=== PATIENT | male | born 1990 | race Caucasian/White ===

== ENCOUNTER 2020-01-28 15:42 | Inpatient (IN) | payer OTHER ==
[~2020-01-28] VITALS: Ht 167.6 cm; Wt 70.5 kg
[2020-01-28] MEDS ORDERED: ONDANSETRON HCL 4 MG/2 ML VIAL IVP ONE (17:00)
[2020-01-28] MEDS ORDERED: SODIUM CHLORIDE 0.9% 1,000 ML IV ONE (17:00)
[2020-01-28 17:24] LABS: ALANINE AMINOTRANSFERASE 69 U/L (12-78); ALKALINE PHOSPHATASE 103 U/L (46-116); ASPARTATE AMINOTRANSFERASE 38 U/L (15-37); BILIRUBIN,TOTAL 0.6 mg/dL (0.1-1.0); CALCIUM, TOTAL 9.4 mg/dL (8.8-10.5); CARBON DIOXIDE 21 mmol/L (22-29); GLOMERULAR FILTR. RATE CALC > 60 mL/min (>60); GLUCOSE,RANDOM 100 mg/dL (70-110); TOTAL PROTEIN, SERUM 8.3 g/dL (6.4-8.2); UREA NITROGEN, BLOOD 10 mg/dL (7-18)
[2020-01-28 17:34] LABS: ANION GAP 11 mmol/L (8-16); CHLORIDE 100 mmol/L (98-107); SODIUM SERUM 132 mmol/L (136-145)
[2020-01-28 18:30] VITALS: BP_SYST 103; BP_SYST 107; BP_DIAS 46
[2020-01-28] MEDS ORDERED: SODIUM CHLORIDE 0.45% 1,000 ML IV SCH (18:41)
[2020-01-28] MEDS ORDERED: ZOLPIDEM TARTRATE 5 MG TABLET PO PRN (18:45)
[2020-01-28] MEDS ORDERED: LOPERAMIDE HCL 2 MG/15 ML SUSPENSION UDCUP PO PRN (18:45)
[2020-01-28] MEDS ORDERED: BACLOFEN 10 MG TABLET PO PRN (18:45)
[2020-01-28] MEDS ORDERED: HydrOXYzine PAMOATE 50 MG CAPSULE PO PRN ×2 (18:45)
[2020-01-28] MEDS ORDERED: BISACODYL 10 MG RECTAL RECTAL SUPPOSITORY PR PRN (18:45)
[2020-01-28] MEDS ORDERED: LOPERAMIDE HCL 2 MG CAPSULE PO PRN (18:45)
[2020-01-28] MEDS ORDERED: IBUPROFEN 600 MG TABLET PO PRN (18:45)
[2020-01-28] MEDS ORDERED: ACETAMINOPHEN 325 MG TABLET PO PRN (18:45)
[2020-01-28] MEDS ORDERED: MAGNESIUM HYDROXIDE SUSPENSION 30 ML UDCUP PO PRN (18:45)
[2020-01-28] MEDS ORDERED: CloNIDine HCL 0.1 MG TABLET PO PRN ×2 (18:45)
[2020-01-28] MEDS ORDERED: ALBUTEROL SULFATE 2.5 MG/0.5 ML NEB SOLUTION NEB PRN (18:45)
[2020-01-28] MEDS ORDERED: MAG HYDROX/AL HYDROX/SIMETH ES 30 ML SUSPENSION UDCUP PO PRN ×2 (18:45)
[2020-01-28] MEDS ORDERED: IPRATROPIUM BROMIDE 0.5 MG/2.5 ML NEB SOLUTION NEB PRN (18:45)
[2020-01-28] MEDS: IBUPROFEN 600 MG TABLET PO PRN (19:34)
[2020-01-28 20:24] LABS: BASOPHILS % (AUTO) 0.2 % (0.0-2.0); EOSINOPHILS % (AUTO) 0 % (1.0-6.0); HEMATOCRIT 42.1 % (41-53); HEMOGLOBIN 14.4 g/dL (13.5-17.5); LYMPHOCYTES # (AUTO) 0.9 K/uL (1.0-4.8); MEAN CORPUSCULAR HEMOGLOBIN 28.8 pg (26.0-34.0); MEAN CORPUSCULAR HGB CONC 34.1 G/dL (31.0-37.0); MEAN CORPUSCULAR VOLUME 85 fL (80-100); MONOCYTES # (AUTO) 0.3 K/uL (0.1-1.0); MONOCYTES % (AUTO) 4.5 % (2.0-9.0); NEUTROPHILS % (AUTO) 82.3 % (40.0-70.0); PLATELET COUNT (AUTO) 315 K/uL (150-450); RED BLOOD CELL COUNT(AUTO) 4.98 MIL/uL (4.50-5.90); RED CELL DISTRIBUTION WIDTH 13.4 % (11.5-14.5)
[2020-01-28 20:51] LABS: AMPHET/METH SCREEN,URINE POSITIVE (NEGATIVE); BARBITURATE SCREEN, URINE NEGATIVE (NEGATIVE); BENZODIAZEPINES SCREEN,URINE NEGATIVE (NEGATIVE); CANNABINOID SCREEN,URINE NEGATIVE (NEGATIVE); COCAINE SCREEN,URINE NEGATIVE (NEGATIVE); METHADONE SCREEN, URINE NEGATIVE (NEGATIVE); OPIATE SCREEN,URINE POSITIVE (NEGATIVE)
[2020-01-28 20:56] LABS: PHENCYCLIDINE SCREEN,URINE NEGATIVE (NEGATIVE)
[2020-01-28] MEDS: CloNIDine HCL 0.1 MG TABLET PO SCH (21:32)
[2020-01-28] MEDS: TraZODone HCL 50 MG TABLET PO PRN (21:32)
[2020-01-28] MEDS: LORazepam 1 MG TABLET PO PRN (21:32)
[2020-01-28] MEDS: ONDANSETRON HCL 4 MG/2 ML VIAL IVP PRN (22:46)
[2020-01-28 23:03] VITALS: BP 149/72
[2020-01-28 23:05] VITALS: BP 149/72
[2020-01-29] MEDS: PROMETHAZINE HCL 25 MG TABLET PO PRN ×2 (03:54→12:35)
[2020-01-29 04:45] VITALS: BP 102/53
[2020-01-29] MEDS: CloNIDine HCL 0.1 MG TABLET PO SCH ×4 (05:54→21:43)
[2020-01-29 07:09] LABS: BASOPHILS % (AUTO) 0.2 % (0.0-2.0); EOSINOPHILS % (AUTO) 0 % (1.0-6.0); HEMATOCRIT 41.5 % (41-53); HEMOGLOBIN 14.4 g/dL (13.5-17.5); LYMPHOCYTES # (AUTO) 0.9 K/uL (1.0-4.8); LYMPHOCYTES % (AUTO) 13.5 % (22.0-44.0); MEAN CORPUSCULAR HGB CONC 34.7 G/dL (31.0-37.0); MEAN CORPUSCULAR VOLUME 84 fL (80-100); MONOCYTES # (AUTO) 0.3 K/uL (0.1-1.0); MONOCYTES % (AUTO) 4.5 % (2.0-9.0); NEUTROPHILS # (AUTO) 5.5 K/uL (1.8-7.7); NEUTROPHILS % (AUTO) 81.8 % (40.0-70.0); PLATELET COUNT (AUTO) 337 K/uL (150-450); RED BLOOD CELL COUNT(AUTO) 4.97 MIL/uL (4.50-5.90); RED CELL DISTRIBUTION WIDTH 13.5 % (11.5-14.5)
[2020-01-29] MEDS: ONDANSETRON HCL 4 MG/2 ML VIAL IVP PRN ×3 (08:25→23:11)
[2020-01-29] MEDS: HEPARIN SODIUM,PORCINE 5,000 UNITS/ML VIAL SQ SCH ×4 (08:26→23:11)
[2020-01-29] MEDS: DICYCLOMINE HCL 10 MG CAPSULE PO PRN ×2 (08:37→23:12)
[2020-01-29 08:46] VITALS: BP 110/55
[2020-01-29 12:37] VITALS: BP 125/64
[2020-01-29 17:00] VITALS: BP 107/54
[2020-01-29 18:58] VITALS: BP 107/54
[2020-01-29 20:21] VITALS: BP 118/59
[2020-01-29] MEDS: TraZODone HCL 50 MG TABLET PO PRN (21:58)
[2020-01-29] MEDS ORDERED: SODIUM CHLORIDE 0.9% 500 ML IV ONE (23:09)
[2020-01-30 00:17] VITALS: BP 121/64
[2020-01-30 04:42] VITALS: BP 107/63
[2020-01-30] MEDS: CloNIDine HCL 0.1 MG TABLET PO SCH ×4 (06:00→22:00)
[2020-01-30 08:06] VITALS: BP 123/72
[2020-01-30] MEDS: DICYCLOMINE HCL 10 MG CAPSULE PO PRN ×2 (08:17→15:08)
[2020-01-30] MEDS: PROMETHAZINE HCL 25 MG TABLET PO PRN (08:18)
[2020-01-30] MEDS: HEPARIN SODIUM,PORCINE 5,000 UNITS/ML VIAL SQ SCH ×3 (08:18→23:36)
[2020-01-30] MEDS: ONDANSETRON HCL 4 MG/2 ML VIAL IVP PRN ×2 (15:08→21:56)
[2020-01-30] MEDS: SODIUM CHLORIDE 0.45% 1,000 ML IV SCH (16:29)
[2020-01-30 17:09] VITALS: BP 97/49
[2020-01-30] MEDS: ACETAMINOPHEN 325 MG TABLET PO PRN ×2 (17:13→21:56)
[2020-01-30 19:48] VITALS: BP 116/72
[2020-01-30] MEDS: TraZODone HCL 50 MG TABLET PO PRN (21:56)
[2020-01-30 23:36] VITALS: BP 120/66
[2020-01-31 05:04] VITALS: BP 118/68
[2020-01-31] MEDS: CloNIDine HCL 0.1 MG TABLET PO SCH ×4 (06:00→22:00)
[2020-01-31] MEDS: SODIUM CHLORIDE 0.45% 1,000 ML IV SCH ×2 (06:37→21:33)
[2020-01-31 07:14] LABS: ANION GAP 10 mmol/L (8-16); CALCIUM, TOTAL 9.3 mg/dL (8.8-10.5); CARBON DIOXIDE 32 mmol/L (22-29); CHLORIDE 97 mmol/L (98-107); CREATININE 0.99 mg/dL (0.60-1.30); GLOMERULAR FILTR. RATE CALC > 60 mL/min (>60); GLUCOSE,RANDOM 118 mg/dL (70-110); SODIUM SERUM 139 mmol/L (136-145); UREA NITROGEN, BLOOD 17 mg/dL (7-18)
[2020-01-31 07:34] LABS: POTASSIUM 2.6 mmol/L (3.5-5.1)
[2020-01-31 07:44] LABS: PHOSPHORUS 5.2 mg/dL (2.5-4.9)
[2020-01-31 08:14] VITALS: BP 100/66
[2020-01-31] MEDS: ONDANSETRON HCL 4 MG/2 ML VIAL IVP PRN ×2 (08:25→18:25)
[2020-01-31] MEDS: HEPARIN SODIUM,PORCINE 5,000 UNITS/ML VIAL SQ SCH ×3 (08:28→23:39)
[2020-01-31] MEDS: POTASSIUM CHL 10 MEQ/WATER 50 ML IV PRN ×4 (11:01→16:38)
[2020-01-31 12:12] VITALS: BP 68/119
[2020-01-31] MEDS: POTASSIUM CHLORIDE 20 MEQ ER TABLET PO PRN (15:02)
[2020-01-31 17:02] VITALS: BP 114/57
[2020-01-31 21:45] VITALS: BP 116/76
[2020-01-31] MEDS: TraZODone HCL 50 MG TABLET PO PRN (21:50)
[2020-02-01] MEDS: ONDANSETRON HCL 4 MG/2 ML VIAL IVP PRN ×2 (04:35→12:24)
[2020-02-01 05:20] VITALS: BP 90/5
[2020-02-01] MEDS: CloNIDine HCL 0.1 MG TABLET PO SCH ×4 (06:00→21:42)
[2020-02-01] MEDS: HEPARIN SODIUM,PORCINE 5,000 UNITS/ML VIAL SQ SCH ×3 (08:19→23:56)
[2020-02-01 08:24] LABS: ANION GAP 6 mmol/L (8-16); CALCIUM, TOTAL 8.8 mg/dL (8.8-10.5); CARBON DIOXIDE 30 mmol/L (22-29); CHLORIDE 102 mmol/L (98-107); CREATININE 1.09 mg/dL (0.60-1.30); GLOMERULAR FILTR. RATE CALC > 60 mL/min (>60); GLUCOSE,RANDOM 104 mg/dL (70-110); POTASSIUM 4.1 mmol/L (3.5-5.1); SODIUM SERUM 138 mmol/L (136-145); UREA NITROGEN, BLOOD 10 mg/dL (7-18)
[2020-02-01 08:31] VITALS: BP 113/71
[2020-02-01] MEDS: IBUPROFEN 600 MG TABLET PO PRN (12:26)
[2020-02-01 15:51] VITALS: BP 110/72
[2020-02-01] MEDS: ACETAMINOPHEN 325 MG TABLET PO PRN (16:44)
[2020-02-01] MEDS: DICYCLOMINE HCL 10 MG CAPSULE PO PRN (16:44)
[2020-02-01] MEDS: SODIUM CHLORIDE 0.45% 1,000 ML IV SCH (21:03)
[2020-02-01 21:43] VITALS: BP 90/53
[2020-02-01] MEDS: LORazepam 1 MG TABLET PO PRN (22:00)
[2020-02-01] MEDS ORDERED: MORPHINE SULFATE 2 MG/ML SYRINGE IVP ONE ×2 (22:53→23:00)
[2020-02-01 23:11] LABS: BASOPHILS % (AUTO) 1.5 % (0.0-2.0); EOSINOPHILS % (AUTO) 0.3 % (1.0-6.0); HEMATOCRIT 42.9 % (41-53); HEMOGLOBIN 14.3 g/dL (13.5-17.5); LYMPHOCYTES # (AUTO) 1.8 K/uL (1.0-4.8); LYMPHOCYTES % (AUTO) 24.8 % (22.0-44.0); MEAN CORPUSCULAR HEMOGLOBIN 28.7 pg (26.0-34.0); MEAN CORPUSCULAR HGB CONC 33.4 G/dL (31.0-37.0); MEAN CORPUSCULAR VOLUME 86 fL (80-100); MONOCYTES # (AUTO) 0.6 K/uL (0.1-1.0); MONOCYTES % (AUTO) 8.6 % (2.0-9.0); NEUTROPHILS # (AUTO) 4.8 K/uL (1.8-7.7); NEUTROPHILS % (AUTO) 64.8 % (40.0-70.0); PLATELET COUNT (AUTO) 316 K/uL (150-450); RED BLOOD CELL COUNT(AUTO) 5.01 MIL/uL (4.50-5.90); RED CELL DISTRIBUTION WIDTH 13.3 % (11.5-14.5)
[2020-02-01 23:25] LABS: ANION GAP 2 mmol/L (8-16); CALCIUM, TOTAL 8.8 mg/dL (8.8-10.5); CARBON DIOXIDE 32 mmol/L (22-29); CHLORIDE 103 mmol/L (98-107); CREATININE 0.99 mg/dL (0.60-1.30); GLOMERULAR FILTR. RATE CALC > 60 mL/min (>60); GLUCOSE,RANDOM 99 mg/dL (70-110); POTASSIUM 3.8 mmol/L (3.5-5.1); SODIUM SERUM 137 mmol/L (136-145); UREA NITROGEN, BLOOD 14 mg/dL (7-18)
[2020-02-01 23:31] LABS: ALANINE AMINOTRANSFERASE 41 U/L (12-78); ALBUMIN 3.6 g/dL (3.4-5.0); ALKALINE PHOSPHATASE 93 U/L (46-116); AMYLASE 56 U/L (25-115); ASPARTATE AMINOTRANSFERASE 17 U/L (15-37); BILIRUBIN,TOTAL 0.6 mg/dL (0.1-1.0); CREATINE KINASE, TOTAL ONLY 38 U/L (39-308); LIPASE 147 U/L (73-393); TOTAL PROTEIN, SERUM 7.2 g/dL (6.4-8.2)
[2020-02-01] MEDS: DEXTROSE 5%-0.45% SODIUM CHL 1,000 ML IV SCH (23:49)
[2020-02-02] MEDS ORDERED: MORPHINE SULFATE 2 MG/ML SYRINGE IVP ONE (00:15)
[2020-02-02 05:15] VITALS: BP 111/66
[2020-02-02] MEDS: LORazepam 1 MG TABLET PO PRN (05:29)
[2020-02-02 07:27] LABS: BASOPHILS % (AUTO) 0.3 % (0.0-2.0); EOSINOPHILS % (AUTO) 0.2 % (1.0-6.0); HEMATOCRIT 43.2 % (41-53); HEMOGLOBIN 14.9 g/dL (13.5-17.5); LYMPHOCYTES # (AUTO) 1.8 K/uL (1.0-4.8); LYMPHOCYTES % (AUTO) 24.1 % (22.0-44.0); MEAN CORPUSCULAR HEMOGLOBIN 29.1 pg (26.0-34.0); MEAN CORPUSCULAR HGB CONC 34.6 G/dL (31.0-37.0); MEAN CORPUSCULAR VOLUME 84 fL (80-100); MONOCYTES # (AUTO) 0.6 K/uL (0.1-1.0); MONOCYTES % (AUTO) 7.6 % (2.0-9.0); NEUTROPHILS # (AUTO) 5.1 K/uL (1.8-7.7); NEUTROPHILS % (AUTO) 67.8 % (40.0-70.0); PLATELET COUNT (AUTO) 358 K/uL (150-450); RED BLOOD CELL COUNT(AUTO) 5.13 MIL/uL (4.50-5.90); RED CELL DISTRIBUTION WIDTH 13.2 % (11.5-14.5)
[2020-02-02 08:10] LABS: ALBUMIN 3.7 g/dL (3.4-5.0); ANION GAP 7 mmol/L (8-16); CALCIUM, TOTAL 8.8 mg/dL (8.8-10.5); CARBON DIOXIDE 32 mmol/L (22-29); CHLORIDE 102 mmol/L (98-107); GLOMERULAR FILTR. RATE CALC > 60 mL/min (>60); GLUCOSE,RANDOM 102 mg/dL (70-110); POTASSIUM 3.2 mmol/L (3.5-5.1); SODIUM SERUM 141 mmol/L (136-145); UREA NITROGEN, BLOOD 12 mg/dL (7-18)
[2020-02-02 08:30] LABS: ALANINE AMINOTRANSFERASE 44 U/L (12-78); ALKALINE PHOSPHATASE 88 U/L (46-116); ASPARTATE AMINOTRANSFERASE 18 U/L (15-37); BILIRUBIN,TOTAL 0.7 mg/dL (0.1-1.0)
[2020-02-02 08:31] LABS: TOTAL PROTEIN, SERUM 7.5 g/dL (6.4-8.2)
[2020-02-02 08:52] VITALS: BP 116/53
[2020-02-02] MEDS: HEPARIN SODIUM,PORCINE 5,000 UNITS/ML VIAL SQ SCH ×3 (08:53→23:13)
[2020-02-02 12:19] VITALS: BP 102/58
[2020-02-02 14:32] VITALS: BP 126/66
[2020-02-02 15:44] VITALS: BP 95/58
[2020-02-02] MEDS: POTASSIUM CHLORIDE 20 MEQ ER TABLET PO PRN (17:44)
[2020-02-02] MEDS: DEXTROSE 5%-0.45% SODIUM CHL 1,000 ML IV SCH (20:13)
[2020-02-02 20:30] VITALS: BP 107/69
[2020-02-02] MEDS: IBUPROFEN 600 MG TABLET PO PRN (21:14)
[2020-02-02] MEDS: TraZODone HCL 50 MG TABLET PO PRN (21:14)
[2020-02-02] MEDS: ONDANSETRON HCL 4 MG/2 ML VIAL IVP PRN (21:18)
[2020-02-03 00:10] VITALS: BP 114/60
[2020-02-03 05:30] VITALS: BP 106/65
[2020-02-03 06:42] LABS: BASOPHILS % (AUTO) 0.5 % (0.0-2.0); EOSINOPHILS % (AUTO) 0.4 % (1.0-6.0); HEMATOCRIT 41.7 % (41-53); HEMOGLOBIN 14.8 g/dL (13.5-17.5); LYMPHOCYTES # (AUTO) 1.5 K/uL (1.0-4.8); LYMPHOCYTES % (AUTO) 23.9 % (22.0-44.0); MEAN CORPUSCULAR HEMOGLOBIN 29.7 pg (26.0-34.0); MEAN CORPUSCULAR HGB CONC 35.4 G/dL (31.0-37.0); MEAN CORPUSCULAR VOLUME 84 fL (80-100); MONOCYTES # (AUTO) 0.5 K/uL (0.1-1.0); MONOCYTES % (AUTO) 8.4 % (2.0-9.0); NEUTROPHILS # (AUTO) 4.3 K/uL (1.8-7.7); NEUTROPHILS % (AUTO) 66.8 % (40.0-70.0); PLATELET COUNT (AUTO) 358 K/uL (150-450); RED BLOOD CELL COUNT(AUTO) 4.97 MIL/uL (4.50-5.90); RED CELL DISTRIBUTION WIDTH 13.4 % (11.5-14.5)
[2020-02-03 06:57] LABS: ALANINE AMINOTRANSFERASE 51 U/L (12-78); ALBUMIN 3.7 g/dL (3.4-5.0); ALKALINE PHOSPHATASE 85 U/L (46-116); ANION GAP 7 mmol/L (8-16); ASPARTATE AMINOTRANSFERASE 27 U/L (15-37); BILIRUBIN,TOTAL 0.6 mg/dL (0.1-1.0); CALCIUM, TOTAL 9.1 mg/dL (8.8-10.5); CARBON DIOXIDE 28 mmol/L (22-29); CHLORIDE 103 mmol/L (98-107); CREATININE 0.85 mg/dL (0.60-1.30); GLOMERULAR FILTR. RATE CALC > 60 mL/min (>60); GLUCOSE,RANDOM 111 mg/dL (70-110); POTASSIUM 3.6 mmol/L (3.5-5.1); SODIUM SERUM 138 mmol/L (136-145); TOTAL PROTEIN, SERUM 7.6 g/dL (6.4-8.2); UREA NITROGEN, BLOOD 11 mg/dL (7-18)
[2020-02-03 08:24] VITALS: BP 109/67
[2020-02-03] MEDS: HEPARIN SODIUM,PORCINE 5,000 UNITS/ML VIAL SQ SCH (08:44)
[2020-02-03] MEDS: DEXTROSE 5%-0.45% SODIUM CHL 1,000 ML IV SCH (08:44)
[2020-02-03 14:00] VITALS: BP 112/66
[2020-02-03] MEDS ORDERED: ACET-3207 PO (14:58)
== END 2020-02-03 16:39 | DRG 897 ==
LOC: EMS 15:42 → 6S 17:07
PROVIDERS: ADMIT Hospitalist; ATTEND Hospitalist
DX: F11.23 Opioid dependence with withdrawal (principal); F32.2 Major depressive disorder, single episode, severe without psychotic features; K56.609 Unspecified intestinal obstruction, unspecified as to partial versus complete obstruction; F10.239 Alcohol dependence with withdrawal, unspecified; F41.9 Anxiety disorder, unspecified; F12.90 Cannabis use, unspecified, uncomplicated; F15.90 Other stimulant use, unspecified, uncomplicated; Y90.9 Presence of alcohol in blood, level not specified
CPT/HCPCS: 74176; 74250; 83735; 84100; 84132; G0480; J1644; J2270; J2405; J3480; J7030; J7040

== ENCOUNTER 2024-03-11 19:11 | Emergency (ER) | payer OTHER ==
[~2024-03-11] VITALS: Ht 170.2 cm; Wt 75.0 kg
[~2024-03-11 19:11] MED LIST: ACET-3207 PO
[2024-03-11 20:15] LABS: ANION GAP 11 mmol/L (8-16); CALCIUM, TOTAL 9.1 mg/dL (8.8-10.5); CARBON DIOXIDE 24 mmol/L (22-29); CHLORIDE 99 mmol/L (98-107); CREATININE 0.71 mg/dL (0.60-1.30); GLOMERULAR FILTR. RATE CALC > 60 mL/min (>60); GLUCOSE,RANDOM 107 mg/dL (70-110); POTASSIUM 3.9 mmol/L (3.5-5.1); SODIUM SERUM 134 mmol/L (136-145); UREA NITROGEN, BLOOD 9 mg/dL (7-18)
[2024-03-11 20:28] LABS: BASOPHILS % (AUTO) 0.2 % (0.0-2.0); EOSINOPHILS % (AUTO) 0.5 % (1.0-6.0); HEMOGLOBIN 14.5 g/dL (13.5-17.5); LYMPHOCYTES # (AUTO) 1.1 K/uL (1.0-4.8); LYMPHOCYTES % (AUTO) 12.7 % (22.0-44.0); MEAN CORPUSCULAR HGB CONC 33.6 G/dL (31.0-37.0); MEAN CORPUSCULAR VOLUME 89 fL (80-100); MONOCYTES # (AUTO) 0.3 K/uL (0.1-1.0); MONOCYTES % (AUTO) 3.1 % (2.0-9.0); NEUTROPHILS # (AUTO) 7.3 K/uL (1.8-7.7); NEUTROPHILS % (AUTO) 83.5 % (40.0-70.0); RED BLOOD CELL COUNT(AUTO) 4.82 MIL/uL (4.50-5.90); RED CELL DISTRIBUTION WIDTH 13.5 % (11.5-14.5); WHITE BLOOD COUNT (AUTO) 8.7 K/uL (4.5-11.0)
[2024-03-11 20:41] LABS: PLATELET COUNT (AUTO) 150 K/uL (150-450)
[2024-03-11 20:46] LABS: COVID AG,FIA SOURCE NASAL SWAB
[2024-03-11 20:56] LABS: APPEARANCE,URINE CLEAR (CLEAR); BILIRUBIN,URINE NEGATIVE (NEGATIVE); COLOR,URINE LIGHT YELLOW (YELLOW); GLUCOSE, URINE (UA) NEGATIVE (NEGATIVE); KETONES,URINE NEGATIVE (NEGATIVE); LEUKOCYTE ESTERASE ,URINE NEGATIVE (NEGATIVE); NITRATE,URINE NEGATIVE (NEGATIVE); OCCULT BLOOD,URINE NEGATIVE (NEGATIVE); PH,URINE 7.5 (5.0-8.0); PH,URINE DRUG SCREEN 7.5 (5.0-8.0); PROTEIN,URINE NEGATIVE (NEGATIVE); SPECIFIC GRAVITIY, URINE 1.017 (1.003-1.030); UROBILINOGEN,URINE <=1.0 mg/dL (<=1.0)
[2024-03-11 21:01] LABS: ALCOHOL, URINE DRUG SCREEN NEGATIVE (NEGATIVE); AMPHET/METH SCREEN,URINE POSITIVE (NEGATIVE); BARBITURATE SCREEN, URINE NEGATIVE (NEGATIVE); BENZODIAZEPINES SCREEN,URINE NEGATIVE (NEGATIVE); CANNABINOID SCREEN,URINE POSITIVE (NEGATIVE); COCAINE SCREEN,URINE NEGATIVE (NEGATIVE); METHADONE SCREEN, URINE NEGATIVE (NEGATIVE); OPIATE SCREEN,URINE NEGATIVE (NEGATIVE); PHENCYCLIDINE SCREEN,URINE NEGATIVE (NEGATIVE)
[2024-03-11 21:08] LABS: SARS-COV2 (COVID) ANTIGEN,FIA Negative (Negative)
[2024-03-11] MEDS ORDERED: ONDA-104 PO (21:18)
[2024-03-11] MEDS: ONDANSETRON 4 MG RAPDIS TABLET PO ONE (21:40)
[2024-03-11 21:42] VITALS: BP 125/72; PULSE 89; RESP 18; TEMP 97.6; O2SAT 95
== END 2024-03-11 22:06 ==
LOC: EMS 19:11
DX: R11.2 Nausea with vomiting, unspecified (principal); Z20.822 Contact with and (suspected) exposure to COVID-19
CPT/HCPCS: 99285; 87426; 80048; 81003; 85025; 36415; 73130; 93005; 80307; Q9967